=== PATIENT | female | born 1955 | race Two or more races ===

== ENCOUNTER → 2020-11-19 | Outpatient (CLI) | payer MEDICARE ==
[~2020-11-19] MED LIST: CAND1TAB13 PO; LEVO75TA5 PO; LIDOCAINE 1%, 20ML ONE; LIDOCAINE 1%-EPI 1:100K, 20ML ONE; LOSA50TA2 PO
== END | disposition home or self-care (01) ==
LOC: MERGE 11-04 15:17 → CFH 07:19
PROVIDERS: ATTEND Physician Assistant
DX: R92.0 Mammographic microcalcification found on diagnostic imaging of breast (principal); D05.11 Intraductal carcinoma in situ of right breast
CPT/HCPCS: 19083; 88305; 77065

== ENCOUNTER 2020-12-10 14:54 | Outpatient (CLI) | payer MEDICARE ==
[~2020-12-10 14:54] MED LIST changes: -LIDOCAINE 1%, 20ML ONE; -LIDOCAINE 1%-EPI 1:100K, 20ML ONE
[2020-12-10] MEDS ORDERED: HYDR50TA99 PO (15:31)
[2020-12-10] MEDS ORDERED: NYSTATIN PO (15:31)
[2020-12-10] MEDS ORDERED: LOSA50TA14 PO (15:31)
== END 2020-12-10 23:59 | disposition home or self-care (01) ==
LOC: STAR 14:54
PROVIDERS: ATTEND Surgery
DX: Z01.818 Encounter for other preprocedural examination (principal); Z01.812 Encounter for preprocedural laboratory examination; D05.11 Intraductal carcinoma in situ of right breast; R94.31 Abnormal electrocardiogram [ECG] [EKG]
CPT/HCPCS: 93005

== ENCOUNTER 2020-12-16 10:07 | Day surgery (SDC) | payer MEDICARE ==
[~2020-12-16] VITALS: Ht 160 cm; Wt 61.4 kg
[~2020-12-16 10:07] MED LIST changes: +BUPIVACAINE/PF 0.5% ONE; +EPINEPHRINE 1 MG/ML, 1ML ONE; +HYDR50TA99 PO; +ISOSULFAN BLUE 10 MG/ML, 5ML IV ONE; +LOSA50TA14 PO; +NYSTATIN PO
[2020-12-16] MEDS ORDERED: ONDANSETRON ODT 8 MG PO ONE (11:00)
[2020-12-16] MEDS ORDERED: LACTATED RINGERS 1,000 ML IV SCH (11:00)
[2020-12-16] MEDS ORDERED: ACETAMINOPHEN 500 MG TABLET PO ONE (11:00)
[2020-12-16] MEDS ORDERED: CHLORHEXIDINE 15 ML UDC ONE (11:03)
[2020-12-16] MEDS ORDERED: ONDANSETRON ODT 8 MG ONE (11:03)
[2020-12-16] MEDS ORDERED: ACETAMINOPHEN 500 MG TABLET ONE (11:03)
[2020-12-16 11:20] VITALS: BP 145/88
[2020-12-16] MEDS ORDERED: NEOSTIGMINE 1 MG/ML, 10ML ONE (13:01)
[2020-12-16] MEDS ORDERED: GLYCOPYRROLATE 0.2MG/1ML, 5ML ONE (13:01)
[2020-12-16] MEDS ORDERED: MIDAZOLAM 1 MG/ML, 2ML ONE (13:02)
[2020-12-16] MEDS ORDERED: FENTANYL PF 250 MCG/5ML ONE (13:02)
[2020-12-16] MEDS ORDERED: PROPOFOL 10 MG/ML, 20ML ONE (14:29)
[2020-12-16] MEDS ORDERED: LABETALOL 5MG/ML, 20ML IV PRN (14:30)
[2020-12-16] MEDS ORDERED: HYDROmorphone 1 MG/ML, 1ML INJ IVPush PRN (14:30)
[2020-12-16] MEDS ORDERED: ACETAMINOPHEN 325 MG TABLET PO PRN (14:30)
[2020-12-16] MEDS ORDERED: MEPERIDINE/PF 25MG/0.5ML IVPush PRN (14:30)
[2020-12-16] MEDS ORDERED: CEFAZOLIN 1,000 MG ONE ×2 (14:30)
[2020-12-16] MEDS ORDERED: FENTANYL PF 100 MCG/2ML IV PRN (14:30)
[2020-12-16] MEDS ORDERED: ONDANSETRON 2MG/ML, 2ML ONE (14:30)
[2020-12-16] MEDS ORDERED: OXYcodone 5 MG/5 ML ORAL.SOL UDC PO PRN (14:30)
[2020-12-16] MEDS ORDERED: KETOROLAC 30 MG/1 ML IV PRN (14:30)
[2020-12-16] MEDS ORDERED: ROCURONIUM 10MG/ML,5ML ONE (14:30)
[2020-12-16] MEDS ORDERED: hydrALAzine 20 MG/ML, 1ML IV PRN (14:30)
[2020-12-16] MEDS ORDERED: DIAZEPAM 5 MG/ML, 2ML IVPush PRN (14:30)
[2020-12-16] MEDS ORDERED: LIDOCAINE-MPF 2% ,5ML ONE (14:30)
[2020-12-16] MEDS ORDERED: DEXAMETHASONE 4 MG/ML, 5ML ONE (14:30)
[2020-12-16] MEDS ORDERED: ONDANSETRON 2MG/ML, 2ML IVPush PRN (14:30)
[2020-12-16] MEDS ORDERED: ACETAMINOPHEN 650 MG/20.3 ML UDC ONE (15:02)
[2020-12-16] MEDS ORDERED: FENTANYL PF 100 MCG/2ML ONE (15:02)
[2020-12-16] MEDS ORDERED: OXYcodone 5 MG/5 ML ORAL.SOL UDC ONE (15:02)
[2020-12-16] MEDS ORDERED: ONDA4TAB7 PO (15:09)
[2020-12-16] MEDS ORDERED: HYDR-2214 PO (15:09)
== END 2020-12-16 17:20 | disposition home or self-care (01) ==
LOC: SDC 10:07 → EDSTATUS 13:00 → SDC 17:20
PROVIDERS: ATTEND Surgery
DX: D05.11 Intraductal carcinoma in situ of right breast (principal); I10 Essential (primary) hypertension; E03.9 Hypothyroidism, unspecified; F41.9 Anxiety disorder, unspecified; Z79.890 Hormone replacement therapy; Z79.899 Other long term (current) drug therapy; Z80.3 Family history of malignant neoplasm of breast; Z80.42 Family history of malignant neoplasm of prostate
CPT/HCPCS: 19303; 38525; 38792; 88305; 88307; 88333; 88341; 88342; A9541; C1729; J0171; J0690; J1100; J2250; J2405; J2704; J2710; J3010; J7120; Q0162